=== PATIENT | female | born 1960 | race Caucasian/White ===

== ENCOUNTER 2017-05-19 08:01 | Outpatient (CLI) | payer OTHER ==
--- NOTE | 2017-05-19 09:45 | MRI ---
MRI LUMBAR SPINE WITHOUT CONTRAST: HISTORY: Right-side lower back pain and numbness. FINDINGS: There is scoliosis of the lumbar spine. The vertebral body heights are maintained. There is end gene te edema at L1-2 level. Disk desiccation is noted at multiple levels in the lumbar spine. Disk spac e narrowing is most prominent at L1-2 level. Disk bulges are present at L1-2 and L2-3 levels. There is an annular tear involving the right posterolateral aspect of the l4-5 disk. No significant centr al canal or neural foraminal stenosis is seen. Tarlov cysts are present in the sacrum. IMPRESSION: 1. Lumbar spondylosis and scoliosis. 2. Annular tear involving L4-5 disk. POS: [facility]
== END 2017-05-19 08:02 | disposition home or self-care (01) ==
LOC: MRI 08:01
PROVIDERS: ATTEND Chiropractor
DX: M54.5 Low back pain (principal); M99.03 Segmental and somatic dysfunction of lumbar region; M99.02 Segmental and somatic dysfunction of thoracic region; M62.830 Muscle spasm of back; M47.896 Other spondylosis, lumbar region; M41.9 Scoliosis, unspecified; M51.36 Other intervertebral disc degeneration, lumbar region
CPT/HCPCS: 72148

== ENCOUNTER 2019-05-03 07:11 | Outpatient (CLI) | payer OTHER ==
--- NOTE | 2019-05-03 08:03 | ULT ---
GALLBLADDER ULTRASOUND: HISTORY:Abdominal pain, gallbladder polyp, liver hemangioma FINDINGS: There are multiple hypoechoic masses in the right lobe of the liver measuring 6.9 x 3.8 x 5.5 cm, 3.1 x 2.6 x 3.3 cm and 3 x 3.7 x 2.7 cm respectively. There is a 5 mm nonshadowing echogenic focus arising from the wall of the gallbladder without shadowi ng or mobility, consistent with polyp. No shadowing gallstones, gallbladder wall thickening or pericholecystic fluid is seen. The right kidney and pancreas are normal. The common duct [id number] in diameter. No free fluid is seen in the Camacho's pouch. IMPRESSION: 1. Hyperechoic masses in the liver are suggestive of hemangiomas. Confirmation with technetium 99m la beled RBC scan is recommended. 2. 5 mm gallbladder polyp.
== END 2019-05-03 07:12 | disposition home or self-care (01) ==
LOC: ULT 07:11
PROVIDERS: ATTEND Internal Medicine Gastroenterology
DX: K82.4 Cholesterolosis of gallbladder (principal); R16.0 Hepatomegaly, not elsewhere classified
CPT/HCPCS: 76705

== ENCOUNTER 2019-06-18 10:35 | Outpatient (CLI) | payer OTHER ==
--- NOTE | 2019-06-18 12:27 | MRI ---
MRI ABDOMEN WITH AND WITHOUT IV CONTRAST: Date: 06/18/2019 HISTORY: Liver mass. FINDINGS: Correlation is made with the ultrasound of 05/03/2019. There are masses in the right lobe of the liver with high T2 signal and postcontrast peripheral nodul ar enhancement on early images and centripetal filling on delayed images. The largest of these measur es 7.0 cm in largest dimension. These masses are consistent with hemangiomas. There is a 1.0 cm lesio n in the spleen with high T2 signal and postcontrast enhancement, consistent with hemangioma. The araujo creas, adrenal glands, and kidneys are normal. No gallstones are seen. No free fluid or lymphadenopat hy identified. There is no evidence of aneurysmal dilatation of the abdominal aorta. The bone marrow signal is normal. There is mild levoscoliosis of the lumbar spine. IMPRESSION: Hemangiomas in the liver and spleen. POS: [facility]
[2019-06-18] MEDS ORDERED: Magnevist 469MG/ML 20 ML VIAL ONE (14:21)
== END 2019-06-18 10:36 | disposition home or self-care (01) ==
LOC: BICMRI 10:35
PROVIDERS: ATTEND Physician Assistant Medical
DX: K21.9 Gastro-esophageal reflux disease without esophagitis (principal); R16.0 Hepatomegaly, not elsewhere classified; R10.11 Right upper quadrant pain; D18.09 Hemangioma of other sites
CPT/HCPCS: 74183; A9579

== ENCOUNTER 2021-02-09 07:36 | Outpatient (CLI) | payer BC | END 2021-02-09 07:37 | disposition home or self-care (01) | LOC: ULT 07:36 | PROVIDERS: ATTEND Physician Assistant Medical | DX: R10.11 Right upper quadrant pain (principal); K82.8 Other specified diseases of gallbladder; L29.0 Pruritus ani; K82.4 Cholesterolosis of gallbladder; R16.0 Hepatomegaly, not elsewhere classified | CPT/HCPCS: 76705 ==